=== PATIENT | female | born 1995 | race African-American/Black ===

== ENCOUNTER 2021-09-09 07:46 | Emergency (ER) | payer OTHER ==
[~2021-09-09] VITALS: Ht 170.2 cm; Wt 63.0 kg
[2021-09-09] MEDS ORDERED: MORPHINE SULFATE 4 MG/ML CPJ (NOT FOR IM USE) IV STA (08:08)
[2021-09-09] MEDS ORDERED: ONDANSETRON HCL 4MG/2ML INJ IV STA (08:08)
[2021-09-09] MEDS ORDERED: SODIUM CHLORIDE 0.9% 1,000 ML IV ONE ×2 (08:15→13:15)
[2021-09-09] MEDS ORDERED: MORPHINE SULFATE 2 MG/ML CPJ (NOT FOR IM USE) IV NR ×2 (08:23→10:18)
[2021-09-09 08:25] LABS: BASOPHILS % 0.7 % (0.0-2.0); EOSINOPHILS % 0.2 % (0.0-5.0); HEMATOCRIT. 39.9 % (36.0-48.0); HEMOGLOBIN. 13.8 g/dL (12.0-16.0); LYMPHOCYTES % 18.9 % (20.0-50.0); MEAN CORPUSCULAR HEMOGLOBIN 30.1 pg (28.0-32.0); MEAN CORPUSCULAR VOLUME 87.2 fL (81.0-99.0); MEAN PLATELET VOLUME 9.1 fl (7.4-10.4); MONOCYTES % 4.1 % (2.0-8.0); NEUTROPHILS % 76.1 % (40.0-76.0); PLATELET 339 x1000/uL (130-400); RED BLOOD CELL COUNT 4.58 mill/uL (4.2-5.4); RED CELL DISTRIBUTION WIDTH 12.5 % (11.6-14.6)
[2021-09-09 08:35] LABS: CHLORIDE 100 mEq/L (98-107); PROTHROMBIN TIME 10.3 sec (9.6-11.0)
[2021-09-09 10:04] LABS: CLARITY URINE CLOUDY (CLEAR); COLOR URINE YELLOW (YELLOW); KETONES URINE 1+ (NEGATIVE); LEUKOCYTE ESTERASE URINE NEGATIVE (NEGATIVE); NITRITE URINE NEGATIVE (NEGATIVE); OCCULT BLOOD URINE 1+ (NEGATIVE); PROTEIN URINE 3+ (NEGATIVE); UROBILINOGEN URINE 0.2 E.U./dL (0.2-1.0)
[2021-09-09] MEDS ORDERED: MORPHINE SULFATE 4 MG/ML CPJ (NOT FOR IM USE) IV ONE ×2 (10:15→12:30)
[2021-09-09] MEDS ORDERED: CEFTRIAXONE 1 G PREMIX 50 ML IV ONE (10:45)
[2021-09-09] MEDS ORDERED: HYDRALAZINE 20MG/ML VIAL IV ONE (12:45)
[2021-09-09] MEDS ORDERED: MORPHINE SULFATE 2 MG/ML CPJ (NOT FOR IM USE) IV SCH (13:00)
[2021-09-09] MEDS ORDERED: INSULIN REGULAR (HUMULIN R) 300UNITS/3ML VIAL IV ONE (13:15)
[2021-09-09 13:45] VITALS: BP 148/82
== END 2021-09-09 19:47 | disposition short-term general hospital (02) ==
LOC: ER 07:46 → CANBEDREQ 13:42 → ER 19:47
DX: R10.13 Epigastric pain (principal); R11.2 Nausea with vomiting, unspecified; Z87.19 Personal history of other diseases of the digestive system
CPT/HCPCS: 36415; 74176; 80053; 81003; 81025; 82962; 83690; 85025; 85610; 96361; 96365; 96375; 96376; 99284; J0360; J0696; J1815; J2270; J2405; J7030

== ENCOUNTER 2022-01-16 13:11 | Emergency (ER) | payer OTHER ==
[~2022-01-16] VITALS: Ht 175.3 cm; Wt 65.0 kg
[2022-01-16] MEDS ORDERED: MORPHINE SULFATE 4 MG/ML CPJ (NOT FOR IM USE) IV STA (15:18)
[2022-01-16 15:31] LABS: BASOPHILS % 0.7 % (0.0-2.0); EOSINOPHILS % 1.3 % (0.0-5.0); HEMATOCRIT. 33.4 % (36.0-48.0); HEMOGLOBIN. 11.7 g/dL (12.0-16.0); LYMPHOCYTES % 46.2 % (20.0-50.0); MEAN CORPUSCULAR HEMOGLOBIN 30.2 pg (28.0-32.0); MEAN CORPUSCULAR VOLUME 86.8 fL (81.0-99.0); MEAN PLATELET VOLUME 8.3 fl (7.4-10.4); MONOCYTES % 7.2 % (2.0-8.0); NEUTROPHILS % 44.6 % (40.0-76.0); PLATELET 256 x1000/uL (130-400); RED BLOOD CELL COUNT 3.85 mill/uL (4.2-5.4); RED CELL DISTRIBUTION WIDTH 13.5 % (11.6-14.6)
[2022-01-16 15:33] LABS: CHLORIDE 109 mEq/L (98-107)
[2022-01-16 15:46] LABS: D-DIMER 2.3 mg/L FEU (<0.50); PROTHROMBIN TIME 10.4 sec (9.6-11.0)
[2022-01-16 16:13] LABS: HCG SCREEN NEGATIVE
[2022-01-16] MEDS ORDERED: MORPHINE SULFATE 4 MG/ML CPJ (NOT FOR IM USE) IV ONE (18:45)
[2022-01-16] MEDS ORDERED: HALOPERIDOL LACTATE 5MG/ML VIAL IM ONE (18:45)
[2022-01-16] MEDS ORDERED: IOHEXOL-350 100 ML BOTTLE ONE (18:52)
[2022-01-16] MEDS ORDERED: MORPHINE SULFATE 4 MG/ML CPJ (NOT FOR IM USE) IV NR (19:00)
[2022-01-16] MEDS ORDERED: HALOPERIDOL LACTATE 5MG/ML VIAL IM NR (19:00)
[2022-01-16] MEDS ORDERED: SODIUM CHLORIDE 0.9% 1,000 ML IV ONE (20:00)
[2022-01-16 22:13] VITALS: BP 145/95
== END 2022-01-16 22:45 | disposition short-term general hospital (02) ==
LOC: ER 14:59 → CANBEDREQ 01-17 00:08
DX: R07.89 Other chest pain (principal); E11.9 Type 2 diabetes mellitus without complications
CPT/HCPCS: 36415; 71045; 71275; 80053; 83880; 84484; 84703; 85025; 85379; 85610; 85730; 93005; 96361; 96372; 96374; 96376; 99285; J1630; J2270; J7030; Q9967

== ENCOUNTER 2022-03-13 14:05 | Emergency (ER) | payer OTHER ==
[~2022-03-13] VITALS: Ht 170.2 cm; Wt 61.0 kg
[2022-03-13 14:14] VITALS: BP 143/100
[2022-03-13] MEDS ORDERED: MAGNESIUM/ALUMINUM HYDROXIDE/SIMETHICONE 30ML UDC PO STA (14:20)
== END 2022-03-13 14:35 | disposition left against medical advice (07) ==
LOC: ER 14:16
DX: R10.13 Epigastric pain (principal); E11.9 Type 2 diabetes mellitus without complications; Z90.49 Acquired absence of other specified parts of digestive tract; Z98.890 Other specified postprocedural states
CPT/HCPCS: 82962; 99283

== ENCOUNTER 2023-04-27 15:40 | Emergency (ER) | payer SELFPAY ==
[~2023-04-27] VITALS: Ht 167.6 cm; Wt 80.0 kg
[~2023-04-27 15:40] MED LIST: FAMO20TA8 MT; MAG-55 MT
[2023-04-27 15:41] VITALS: BP 138/64
[2023-04-27] MEDS ORDERED: MAGNESIUM/ALUMINUM HYDROXIDE/SIMETHICONE 30ML UDC PO STA (15:47)
[2023-04-27] MEDS ORDERED: VISCOUS LIDOCAINE 2% 15 ML UDC PO STA (15:47)
[2023-04-27] MEDS ORDERED: ONDANSETRON HCL 4MG TABLET PO ONE (16:00)
[2023-04-27] MEDS ORDERED: FAMOTIDINE 20MG TABLET PO ONE (16:00)
[2023-04-27 16:29] LABS: BASOPHILS % 0.4 % (0.0-2.0); CHLORIDE 106 mEq/L (98-107); EOSINOPHILS % 0.1 % (0.0-5.0); HEMATOCRIT. 33.7 % (36.0-48.0); HEMOGLOBIN. 11.7 g/dL (12.0-16.0); LYMPHOCYTES % 19.8 % (20.0-50.0); MEAN CORPUSCULAR HEMOGLOBIN 30.4 pg (28.0-32.0); MEAN CORPUSCULAR VOLUME 87.5 fL (81.0-99.0); MEAN PLATELET VOLUME 8.3 fl (7.4-10.4); MONOCYTES % 5.1 % (2.0-8.0); NEUTROPHILS % 74.6 % (40.0-76.0); PLATELET 358 x1000/uL (130-400); RED BLOOD CELL COUNT 3.86 mill/uL (4.2-5.4); RED CELL DISTRIBUTION WIDTH 12.9 % (11.6-14.6)
[2023-04-27 16:34] LABS: HCG SCREEN NEGATIVE
== END 2023-04-27 16:40 | disposition left against medical advice (07) ==
LOC: ER 15:40
DX: R10.13 Epigastric pain (principal); E11.9 Type 2 diabetes mellitus without complications; Z87.19 Personal history of other diseases of the digestive system; Z90.49 Acquired absence of other specified parts of digestive tract; Z98.890 Other specified postprocedural states
CPT/HCPCS: 36415; 80053; 84703; 85025; 99283